=== PATIENT | male | born 1985 | race Caucasian/White ===

== ENCOUNTER 2016-11-04 17:30 | Emergency (ER) | payer SELFPAY ==
[~2016-11-04] VITALS: Ht 170.2 cm; Wt 83.0 kg
[~2016-11-04 17:30] MED LIST: DIVA500T35 PO; OLAN7.5T2 PO
[2016-11-04] MEDS ORDERED: GABA-531 PO (17:37)
[2016-11-04] MEDS ORDERED: SERT50TA12 PO (17:37)
[2016-11-04] MEDS ORDERED: PRAZ2 PO (17:37)
[2016-11-04 20:30] VITALS: BP 118/60
== END 2016-11-04 20:33 | disposition home or self-care (01) ==
LOC: EMS 17:32
DX: S09.90XA Unspecified injury of head, initial encounter (principal); H53.8 Other visual disturbances; F17.210 Nicotine dependence, cigarettes, uncomplicated; Y35.811A Legal intervention involving manhandling, law enforcement official injured, initial encounter; Y93.89 Activity, other specified; Y92.89 Other specified places as the place of occurrence of the external cause; Y99.8 Other external cause status
CPT/HCPCS: 70450; 99284

== ENCOUNTER 2018-11-17 17:31 | Inpatient (IN) | payer SELFPAY ==
[~2018-11-17] VITALS: Ht 170.2 cm; Wt 68.2 kg
[~2018-11-17 17:31] MED LIST changes: +DIVA-78 PO; -DIVA500T35 PO; +GABA-531 PO; +PRAZ2 PO; +SERT50TA12 PO
[2018-11-17 21:37] LABS: BASOPHILS % (AUTO) 0.8 % (0.0-2.0); EOSINOPHILS % (AUTO) 5.3 % (1.0-6.0); HEMATOCRIT 39.7 % (41-53); HEMOGLOBIN 13.2 g/dL (13.5-17.5); MEAN CORPUSCULAR HEMOGLOBIN 29.2 pg (26.0-34.0); MEAN CORPUSCULAR HGB CONC 33.2 G/dL (31.0-37.0); MEAN CORPUSCULAR VOLUME 88 fL (80-100); MONOCYTES # (AUTO) 0.6 K/uL (0.1-1.0); MONOCYTES % (AUTO) 7.8 % (2.0-9.0); NEUTROPHILS # (AUTO) 4.5 K/uL (1.8-7.7); NEUTROPHILS % (AUTO) 60.1 % (40.0-70.0); PLATELET COUNT (AUTO) 196 K/uL (150-450); RED BLOOD CELL COUNT(AUTO) 4.53 MIL/uL (4.50-5.90); RED CELL DISTRIBUTION WIDTH 13.2 % (11.5-14.5)
[2018-11-17 21:51] LABS: ANION GAP 2 mmol/L (8-16); CALCIUM, TOTAL 9.2 mg/dL (8.8-10.5); CARBON DIOXIDE 33 mmol/L (22-29); CHLORIDE 106 mmol/L (98-107); CREATININE 0.79 mg/dL (0.60-1.30); GLOMERULAR FILTR. RATE CALC > 60 mL/min (>60); GLUCOSE,RANDOM 107 mg/dL (70-110); POTASSIUM 3.7 mmol/L (3.5-5.1); SODIUM SERUM 141 mmol/L (136-145); UREA NITROGEN, BLOOD 14 mg/dL (7-18)
[2018-11-17 21:58] LABS: ALANINE AMINOTRANSFERASE 23 U/L (12-78); ALBUMIN 3.6 g/dL (3.4-5.0); ALKALINE PHOSPHATASE 49 U/L (46-116); ASPARTATE AMINOTRANSFERASE 14 U/L (15-37); BILIRUBIN,TOTAL 0.3 mg/dL (0.1-1.0)
[2018-11-17] MEDS ORDERED: LORazepam 1 MG TABLET PO ONE (22:00)
[2018-11-17 22:12] LABS: VALPROIC ACID < 2 mcg/mL (50-100)
[2018-11-17 22:16] LABS: AMPHET/METH SCREEN,URINE NEGATIVE (NEGATIVE); BARBITURATE SCREEN, URINE NEGATIVE (NEGATIVE); BENZODIAZEPINES SCREEN,URINE NEGATIVE (NEGATIVE); CANNABINOID SCREEN,URINE NEGATIVE (NEGATIVE); COCAINE SCREEN,URINE NEGATIVE (NEGATIVE); METHADONE SCREEN, URINE NEGATIVE (NEGATIVE); OPIATE SCREEN,URINE NEGATIVE (NEGATIVE)
[2018-11-17 22:17] LABS: PHENCYCLIDINE SCREEN,URINE NEGATIVE (NEGATIVE)
[2018-11-17] MEDS ORDERED: OLANZapine 5 MG RAPDIS TABLET PO PRN (23:30)
[2018-11-17] MEDS ORDERED: LORazepam 2 MG TABLET PO PRN (23:30)
[2018-11-17] MEDS ORDERED: ZOLPIDEM TARTRATE 10 MG TABLET PO PRN (23:30)
[2018-11-18 05:41] VITALS: BP 113/73
[2018-11-18 08:00] VITALS: BP 110/71
[2018-11-18] MEDS: GABAPENTIN 300 MG CAPSULE PO SCH ×3 (08:33→17:34)
[2018-11-18] MEDS ORDERED: GABAPENTIN 300 MG CAPSULE PO SCH (09:00)
[2018-11-18] MEDS ORDERED: FLUoxetine HCL 20 MG CAPSULE PO SCH ×2 (09:00)
[2018-11-18] MEDS ORDERED: ACETAMINOPHEN 325 MG TABLET PO PRN (12:45)
[2018-11-18] MEDS ORDERED: HydrOXYzine PAMOATE 50 MG CAPSULE PO PRN (12:45)
[2018-11-18] MEDS ORDERED: GuaiFENesin/D-METHORPHAN [SUGAR-FREE] 200-20MG/10 ML SYRUP UDCUP PO PRN (12:45)
[2018-11-18] MEDS ORDERED: MAGNESIUM HYDROXIDE SUSPENSION 30 ML UDCUP PO PRN (12:45)
[2018-11-18] MEDS ORDERED: MAG HYDROX/AL HYDROX/SIMETH ES 30 ML SUSPENSION UDCUP PO PRN (12:45)
[2018-11-18] MEDS ORDERED: TUBERCULIN, PURIFIED PROTEIN DERIVATIVE 5 TU/0.1 ML SYRINGE ID ONE (12:45)
[2018-11-18] MEDS ORDERED: PROMETHAZINE HCL 25 MG TABLET PO PRN (12:45)
[2018-11-18] MEDS ORDERED: LOPERAMIDE HCL 2 MG CAPSULE PO PRN (12:45)
[2018-11-18] MEDS: THIAMINE HCL 100 MG TABLET PO SCH (17:34)
[2018-11-18] MEDS: DIVALPROEX SODIUM 500 MG ER TABLET PO SCH (20:05)
[2018-11-18 20:54] VITALS: BP 145/90
[2018-11-18] MEDS ORDERED: OLANZapine 10 MG TABLET PO SCH ×3 (21:00)
[2018-11-19] MEDS: MULTIVITAMINS WITH MINERALS, THERAPEUTIC TABLET PO SCH (08:27)
[2018-11-19] MEDS: FOLIC ACID 1 MG TABLET PO SCH (08:27)
[2018-11-19] MEDS: THIAMINE HCL 100 MG TABLET PO SCH ×2 (08:27→16:35)
[2018-11-19] MEDS: NALTREXONE HCL 50 MG TABLET PO SCH (08:28)
[2018-11-19 09:00] VITALS: BP 111/73
[2018-11-19] MEDS ORDERED: GABAPENTIN 400 MG CAPSULE PO SCH (09:00)
[2018-11-19] MEDS: GABAPENTIN 300 MG CAPSULE PO SCH ×2 (12:54→16:35)
[2018-11-19 17:17] VITALS: BP 114/63
[2018-11-19] MEDS ORDERED: OLANZapine 10 MG TABLET PO SCH (21:00)
[2018-11-19] MEDS: DIVALPROEX SODIUM 500 MG ER TABLET PO SCH (21:06)
[2018-11-20 06:30] LABS: HEMOGLOBIN A1C 6.2 % (4.5-6.2)
[2018-11-20 06:41] LABS: CHOL/HDL RATIO 3.6 (4.2-7.3)
[2018-11-20] MEDS: MULTIVITAMINS WITH MINERALS, THERAPEUTIC TABLET PO SCH (08:41)
[2018-11-20] MEDS: THIAMINE HCL 100 MG TABLET PO SCH ×2 (08:41→16:57)
[2018-11-20] MEDS: GABAPENTIN 300 MG CAPSULE PO SCH ×3 (08:41→16:57)
[2018-11-20] MEDS: NALTREXONE HCL 50 MG TABLET PO SCH (08:42)
[2018-11-20] MEDS: FOLIC ACID 1 MG TABLET PO SCH (08:42)
[2018-11-20 09:00] VITALS: BP 113/63
[2018-11-20 17:00] VITALS: BP 108/66
[2018-11-20] MEDS: OLANZapine 7.5 MG TABLET PO SCH (20:55)
[2018-11-20] MEDS: DIVALPROEX SODIUM 500 MG ER TABLET PO SCH (20:56)
[2018-11-21] MEDS: THIAMINE HCL 100 MG TABLET PO SCH ×2 (09:06→16:29)
[2018-11-21] MEDS: NALTREXONE HCL 50 MG TABLET PO SCH (09:06)
[2018-11-21] MEDS: FOLIC ACID 1 MG TABLET PO SCH (09:06)
[2018-11-21] MEDS: MULTIVITAMINS WITH MINERALS, THERAPEUTIC TABLET PO SCH (09:07)
[2018-11-21] MEDS: GABAPENTIN 300 MG CAPSULE PO SCH ×3 (09:07→16:29)
[2018-11-21 10:11] VITALS: BP 112/87
[2018-11-21 18:08] VITALS: BP 112/61
[2018-11-21] MEDS: DIVALPROEX SODIUM 500 MG ER TABLET PO SCH (20:33)
[2018-11-21] MEDS: OLANZapine 7.5 MG TABLET PO SCH (20:33)
[2018-11-22] MEDS: NALTREXONE HCL 50 MG TABLET PO SCH (07:53)
[2018-11-22] MEDS: MULTIVITAMINS WITH MINERALS, THERAPEUTIC TABLET PO SCH (07:54)
[2018-11-22] MEDS: FOLIC ACID 1 MG TABLET PO SCH (07:54)
[2018-11-22] MEDS: THIAMINE HCL 100 MG TABLET PO SCH ×2 (07:54→16:15)
[2018-11-22] MEDS: GABAPENTIN 300 MG CAPSULE PO SCH ×3 (07:54→16:15)
[2018-11-22 10:21] VITALS: BP 125/75
[2018-11-22 16:00] VITALS: BP 103/59
[2018-11-22] MEDS: DIVALPROEX SODIUM 500 MG ER TABLET PO SCH (20:36)
[2018-11-22] MEDS: OLANZapine 7.5 MG TABLET PO SCH (20:38)
[2018-11-23 01:28] VITALS: BP 108/73
[2018-11-23] MEDS: GABAPENTIN 300 MG CAPSULE PO SCH ×3 (08:56→17:29)
[2018-11-23] MEDS: NALTREXONE HCL 50 MG TABLET PO SCH (08:56)
[2018-11-23] MEDS: FOLIC ACID 1 MG TABLET PO SCH (08:56)
[2018-11-23] MEDS: THIAMINE HCL 100 MG TABLET PO SCH ×2 (08:56→17:29)
[2018-11-23] MEDS: MULTIVITAMINS WITH MINERALS, THERAPEUTIC TABLET PO SCH (08:56)
[2018-11-23 10:25] VITALS: BP 104/60
[2018-11-23 16:44] VITALS: BP 110/71
[2018-11-23] MEDS: DIVALPROEX SODIUM 500 MG ER TABLET PO SCH (21:00)
[2018-11-23] MEDS: OLANZapine 7.5 MG TABLET PO SCH (21:00)
[2018-11-24 08:00] VITALS: BP 137/91
[2018-11-24] MEDS: NALTREXONE HCL 50 MG TABLET PO SCH (08:04)
[2018-11-24] MEDS: MULTIVITAMINS WITH MINERALS, THERAPEUTIC TABLET PO SCH (08:05)
[2018-11-24] MEDS: FOLIC ACID 1 MG TABLET PO SCH (08:05)
[2018-11-24] MEDS: GABAPENTIN 300 MG CAPSULE PO SCH ×3 (08:05→16:16)
[2018-11-24] MEDS: THIAMINE HCL 100 MG TABLET PO SCH ×2 (08:05→16:16)
[2018-11-24] MEDS ORDERED: FLUoxetine HCL 20 MG CAPSULE PO ONE (10:00)
[2018-11-24 16:48] VITALS: BP 137/76
[2018-11-24] MEDS ORDERED: GABA-531 PO (17:02)
[2018-11-24] MEDS ORDERED: NALT50TA PO (17:02)
[2018-11-24] MEDS ORDERED: OLAN7.5T9 PO (17:02)
[2018-11-24] MEDS ORDERED: DIVA500T52 PO (17:02)
[2018-11-24] MEDS ORDERED: FLUO-191 PO (17:02)
[2018-11-24] MEDS: OLANZapine 7.5 MG TABLET PO SCH (20:11)
[2018-11-24] MEDS: DIVALPROEX SODIUM 500 MG ER TABLET PO SCH (20:11)
[2018-11-25 01:52] VITALS: BP 133/76
[2018-11-25] MEDS: MULTIVITAMINS WITH MINERALS, THERAPEUTIC TABLET PO SCH (08:04)
[2018-11-25] MEDS: THIAMINE HCL 100 MG TABLET PO SCH (08:04)
[2018-11-25] MEDS: FOLIC ACID 1 MG TABLET PO SCH (08:04)
[2018-11-25] MEDS: NALTREXONE HCL 50 MG TABLET PO SCH (08:04)
[2018-11-25] MEDS: GABAPENTIN 300 MG CAPSULE PO SCH (08:04)
[2018-11-25 08:10] VITALS: BP 150/54
[2018-11-25] MEDS ORDERED: FLUoxetine HCL 20 MG CAPSULE PO SCH (09:00)
== END 2018-11-25 11:30 | disposition home or self-care (01) | DRG 885 ==
LOC: EMS 17:32 → 3EX 11-18 04:30 → EMS 11-18 04:51
PROVIDERS: ADMIT Psychiatry & Neurology Psychiatry; ATTEND Psychiatry & Neurology Psychiatry
DX: F31.4 Bipolar disorder, current episode depressed, severe, without psychotic features (principal); R45.851 Suicidal ideations; F43.10 Post-traumatic stress disorder, unspecified; I10 Essential (primary) hypertension; F41.9 Anxiety disorder, unspecified; F17.210 Nicotine dependence, cigarettes, uncomplicated; Z59.0 Homelessness; Z79.899 Other long term (current) drug therapy; Z91.19 Patient's noncompliance with other medical treatment and regimen
CPT/HCPCS: 83036; 93005; G0378; G0480

== ENCOUNTER 2018-12-13 15:27 | Inpatient (IN) | payer MEDICAID ==
[~2018-12-13] VITALS: Ht 167.6 cm; Wt 72.6 kg
[~2018-12-13 15:27] MED LIST changes: -DIVA-78 PO; +DIVA500T52 PO; +FLUO-191 PO; +NALT50TA PO; -OLAN7.5T2 PO; +OLAN7.5T9 PO; -PRAZ2 PO; -SERT50TA12 PO
[2018-12-13 15:57] LABS: BASOPHILS % (AUTO) 0.6 % (0.0-2.0); EOSINOPHILS % (AUTO) 6.1 % (1.0-6.0); HEMATOCRIT 42.6 % (41-53); LYMPHOCYTES # (AUTO) 1.9 K/uL (1.0-4.8); LYMPHOCYTES % (AUTO) 26.8 % (22.0-44.0); MEAN CORPUSCULAR HEMOGLOBIN 29.5 pg (26.0-34.0); MEAN CORPUSCULAR HGB CONC 32.8 G/dL (31.0-37.0); MEAN CORPUSCULAR VOLUME 90 fL (80-100); MONOCYTES # (AUTO) 0.6 K/uL (0.1-1.0); MONOCYTES % (AUTO) 8.4 % (2.0-9.0); NEUTROPHILS # (AUTO) 4.1 K/uL (1.8-7.7); NEUTROPHILS % (AUTO) 58.1 % (40.0-70.0); PLATELET COUNT (AUTO) 188 K/uL (150-450); RED BLOOD CELL COUNT(AUTO) 4.74 MIL/uL (4.50-5.90); RED CELL DISTRIBUTION WIDTH 13.1 % (11.5-14.5)
[2018-12-13 16:15] LABS: ANION GAP 8 mmol/L (8-16); CALCIUM, TOTAL 9.6 mg/dL (8.8-10.5); CARBON DIOXIDE 30 mmol/L (22-29); CHLORIDE 103 mmol/L (98-107); CREATININE 0.93 mg/dL (0.60-1.30); GLOMERULAR FILTR. RATE CALC > 60 mL/min (>60); GLUCOSE,RANDOM 96 mg/dL (70-110); POTASSIUM 3.2 mmol/L (3.5-5.1); SODIUM SERUM 141 mmol/L (136-145); UREA NITROGEN, BLOOD 13 mg/dL (7-18)
[2018-12-13 16:19] LABS: AMPHET/METH SCREEN,URINE NEGATIVE (NEGATIVE); BARBITURATE SCREEN, URINE NEGATIVE (NEGATIVE); BENZODIAZEPINES SCREEN,URINE NEGATIVE (NEGATIVE); CANNABINOID SCREEN,URINE NEGATIVE (NEGATIVE); COCAINE SCREEN,URINE NEGATIVE (NEGATIVE); METHADONE SCREEN, URINE NEGATIVE (NEGATIVE); OPIATE SCREEN,URINE NEGATIVE (NEGATIVE)
[2018-12-13 16:20] LABS: PHENCYCLIDINE SCREEN,URINE NEGATIVE (NEGATIVE)
[2018-12-13 16:21] LABS: ALANINE AMINOTRANSFERASE 41 U/L (12-78); ALBUMIN 3.8 g/dL (3.4-5.0); ALKALINE PHOSPHATASE 55 U/L (46-116); ASPARTATE AMINOTRANSFERASE 25 U/L (15-37); BILIRUBIN,TOTAL 0.5 mg/dL (0.1-1.0); TOTAL PROTEIN, SERUM 7.4 g/dL (6.4-8.2)
[2018-12-13 16:33] LABS: VALPROIC ACID < 3 mcg/mL (50-100)
[2018-12-13] MEDS ORDERED: ChlorproMAZINE HCL 100 MG TABLET PO PRN (22:15)
[2018-12-13] MEDS ORDERED: ZOLPIDEM TARTRATE 10 MG TABLET PO PRN (22:15)
[2018-12-13] MEDS ORDERED: LORazepam 2 MG TABLET PO PRN (22:15)
[2018-12-13] MEDS: OLANZapine 2.5 MG TABLET PO SCH (22:50)
[2018-12-13] MEDS: GABAPENTIN 300 MG CAPSULE PO SCH (22:50)
[2018-12-13] MEDS: DIVALPROEX SODIUM 500 MG ER TABLET PO SCH (22:54)
[2018-12-14] MEDS ORDERED: POTASSIUM CHLORIDE 20 MEQ ER TABLET PO ONE (01:00)
[2018-12-14] MEDS ORDERED: POTASSIUM CHLORIDE 20 MEQ ER TABLET ONE (01:02)
[2018-12-14 01:38] VITALS: BP 117/61
[2018-12-14] MEDS ORDERED: CloNIDine HCL 0.1 MG TABLET PO PRN (08:00)
[2018-12-14] MEDS ORDERED: DOCUSATE SODIUM 100 MG CAPSULE PO PRN (08:00)
[2018-12-14] MEDS ORDERED: PETROLATUM,WHITE 28 GM JELLY TP PRN (08:00)
[2018-12-14] MEDS ORDERED: MAGNESIUM HYDROXIDE SUSPENSION 30 ML UDCUP PO PRN (08:00)
[2018-12-14] MEDS ORDERED: LOPERAMIDE HCL 2 MG CAPSULE PO PRN (08:00)
[2018-12-14] MEDS ORDERED: BENZOCAINE/MENTHOL LOZENGE MM PRN (08:00)
[2018-12-14] MEDS ORDERED: ALBUTEROL SULFATE HFA 90 MCG/PUFF 8 GM INHALER IH PRN (08:00)
[2018-12-14] MEDS ORDERED: ACETAMINOPHEN 325 MG TABLET PO PRN (08:00)
[2018-12-14] MEDS ORDERED: ONDANSETRON HCL 4 MG TABLET PO PRN (08:00)
[2018-12-14] MEDS ORDERED: IBUPROFEN 600 MG TABLET PO PRN (08:00)
[2018-12-14] MEDS ORDERED: MAG HYDROX/AL HYDROX/SIMETH ES 30 ML SUSPENSION UDCUP PO PRN (08:00)
[2018-12-14] MEDS ORDERED: BACITRACIN 28.4 GM OINTMENT TP PRN (08:00)
[2018-12-14] MEDS: GABAPENTIN 300 MG CAPSULE PO SCH ×2 (08:32→20:19)
[2018-12-14] MEDS: DIVALPROEX SODIUM 500 MG ER TABLET PO SCH ×2 (08:32→20:19)
[2018-12-14 08:40] VITALS: BP 106/57
[2018-12-14] MEDS: OLANZapine 2.5 MG TABLET PO SCH (20:19)
[2018-12-15 06:37] LABS: ANION GAP 6 mmol/L (8-16); CALCIUM, TOTAL 9.5 mg/dL (8.8-10.5); CARBON DIOXIDE 31 mmol/L (22-29); CHLORIDE 105 mmol/L (98-107); CREATININE 0.95 mg/dL (0.60-1.30); GLOMERULAR FILTR. RATE CALC > 60 mL/min (>60); GLUCOSE,RANDOM 87 mg/dL (70-110); SODIUM SERUM 142 mmol/L (136-145); UREA NITROGEN, BLOOD 14 mg/dL (7-18)
[2018-12-15 08:04] VITALS: BP 131/84
[2018-12-15] MEDS: DIVALPROEX SODIUM 500 MG ER TABLET PO SCH ×2 (08:39→20:16)
[2018-12-15] MEDS: GABAPENTIN 300 MG CAPSULE PO SCH ×3 (08:39→16:25)
[2018-12-15] MEDS ORDERED: GuaiFENesin/D-METHORPHAN [SUGAR-FREE] 200-20MG/10 ML SYRUP UDCUP PO PRN (12:45)
[2018-12-15] MEDS ORDERED: HydrOXYzine PAMOATE 50 MG CAPSULE PO PRN (12:45)
[2018-12-15] MEDS: THIAMINE HCL 100 MG TABLET PO SCH (16:25)
[2018-12-15 16:30] VITALS: BP 137/61
[2018-12-15] MEDS: OLANZapine 7.5 MG TABLET PO SCH (20:17)
[2018-12-16 08:00] VITALS: BP 105/53
[2018-12-16] MEDS: FOLIC ACID 1 MG TABLET PO SCH ×3 (09:00→13:30)
[2018-12-16] MEDS: MULTIVITAMINS WITH MINERALS, THERAPEUTIC TABLET PO SCH ×3 (09:00→13:30)
[2018-12-16] MEDS: THIAMINE HCL 100 MG TABLET PO SCH ×4 (09:00→16:25)
[2018-12-16] MEDS: NALTREXONE HCL 50 MG TABLET PO SCH ×3 (09:00→13:29)
[2018-12-16] MEDS: DIVALPROEX SODIUM 500 MG ER TABLET PO SCH ×4 (09:00→20:34)
[2018-12-16] MEDS: OMEPRAZOLE 20 MG CAPSULE PO PRN ×2 (09:22→13:29)
[2018-12-16] MEDS ORDERED: OLAN7.5T9 PO (16:02)
[2018-12-16] MEDS ORDERED: NALT50TA PO (16:02)
[2018-12-16] MEDS ORDERED: DIVA500T52 PO (16:02)
[2018-12-16 17:00] VITALS: BP 108/61
[2018-12-16] MEDS: OLANZapine 7.5 MG TABLET PO SCH (20:34)
[2018-12-17 08:00] VITALS: BP 103/60
[2018-12-17] MEDS: NALTREXONE HCL 50 MG TABLET PO SCH (09:10)
[2018-12-17] MEDS: THIAMINE HCL 100 MG TABLET PO SCH (09:11)
[2018-12-17] MEDS: DIVALPROEX SODIUM 500 MG ER TABLET PO SCH (09:11)
[2018-12-17] MEDS: FOLIC ACID 1 MG TABLET PO SCH (09:12)
[2018-12-17] MEDS: MULTIVITAMINS WITH MINERALS, THERAPEUTIC TABLET PO SCH (09:12)
== END 2018-12-17 12:00 | disposition home or self-care (01) | DRG 750 ==
LOC: EMS 15:29 → 3EC 12-14 00:53
PROVIDERS: ADMIT Psychiatry & Neurology Psychiatry; ATTEND Psychiatry & Neurology Psychiatry
DX: F20.0 Paranoid schizophrenia (principal); Z59.0 Homelessness; F17.200 Nicotine dependence, unspecified, uncomplicated; F31.9 Bipolar disorder, unspecified; F43.10 Post-traumatic stress disorder, unspecified; G47.00 Insomnia, unspecified; K59.00 Constipation, unspecified; Z91.19 Patient's noncompliance with other medical treatment and regimen
CPT/HCPCS: 87081; G0480

== ENCOUNTER 2020-01-07 07:07 | Emergency (ER) | payer MEDICAID, OTHER ==
[~2020-01-07] VITALS: Ht 170.2 cm; Wt 63.5 kg
[~2020-01-07 07:07] MED LIST changes: +DIVA-80 PO; -DIVA500T52 PO; -FLUO-191 PO; -GABA-531 PO
[2020-01-07] MEDS ORDERED: GABA-1216 PO (07:29)
[2020-01-07 08:11] VITALS: BP 128/62
== END 2020-01-07 08:20 | disposition home or self-care (01) ==
LOC: EMS 07:08
DX: F25.9 Schizoaffective disorder, unspecified (principal); F31.9 Bipolar disorder, unspecified; F41.9 Anxiety disorder, unspecified; F17.210 Nicotine dependence, cigarettes, uncomplicated
CPT/HCPCS: 99406; Z7502